=== PATIENT | male | born 1950 | race Caucasian/White ===

== ENCOUNTER 2024-10-06 10:37 | Emergency (ER) | payer MEDICARE, OTHER ==
[~2024-10-06] VITALS: Ht 175.3 cm; Wt 77.9 kg
[2024-10-06] MEDS ORDERED: ROSU10TA61 PO (10:45)
[2024-10-06 11:54] LABS: BASO # 0.0 10^3/uL (0.0-0.2); BASO % 0.3 % (0.0-1.0); EOS # 0.1 10^3/uL (0.0-0.5); EOS % 1.1 % (0.0-3.0); LYMPH # 1.1 10^3/uL (1.5-5.0); LYMPH % 15.1 % (24.0-44.0); MONO # 0.6 10^3/uL (0.0-0.8); MONO % 8.0 % (2.0-8.0); NEUTROPHILS # 5.6 10^3/uL (1.5-8.5); NEUTROPHILS % 75.4 % (36.0-66.0); PLATELET COUNT, AUTOMATED 222 10^3/uL (150-450)
[2024-10-06] MEDS ORDERED: ISOVUE-370 76% 100 ML VIAL As Ordered ONE (11:55)
[2024-10-06 12:23] LABS: ALT/SGPT 29.0 U/L (7.0-40); AST/SGOT 23.0 U/L (<34)
[2024-10-06 13:44] LABS: KETONE, URINE AUTO RFX NEGATIVE (NEGATIVE); LEUKOCYTE ESTERASE UR AUTO RFX NEGATIVE (NEGATIVE); MUCUS, URINE RFX SMALL (NEGATIVE); NITRITE, URINE AUTO RFX NEGATIVE (NEGATIVE); RBC, URINE AUTO RFX 0 /HPF (0-3); SQUAM EPITHELIAL CELL UR AURFX 0 /HPF (0-6); WBC, URINE AUTO RFX 0 /HPF (0-3)
[2024-10-06] MEDS ORDERED: HOME MED LIST COMPLETE! XX SCH (13:50)
[2024-10-06 14:00] VITALS: BP 141/85; O2SAT 98
[2024-10-06] MEDS ORDERED: MIRA3350 PO (14:05)
[2024-10-06] MEDS ORDERED: GLYC1SUP38 PR (14:05)
[2024-10-06 14:11] VITALS: TEMP 96.9
== END 2024-10-06 14:20 | disposition home or self-care (01) ==
LOC: M ED 10:37
DX: K59.00 Constipation, unspecified (principal); R10.9 Unspecified abdominal pain; E78.5 Hyperlipidemia, unspecified; K21.9 Gastro-esophageal reflux disease without esophagitis; Z79.899 Other long term (current) drug therapy
CPT/HCPCS: 36415; 74177; 80047; 80076; 81001; 83690; 85025; 94760; 99284; Q9967